=== PATIENT | male | born 1955 | race Caucasian/White ===

== ENCOUNTER → 2017-02-11 | Day surgery (SDC) | payer OTHER ==
[~2017-02-11] MED LIST: AMLO10 PO; APIX5TAB PO; ASPI81TA82 PO; ATOR80TA41 PO; CIAL2.5T PO; CLON1TAB PO; COZA50TA PO; FISH1000 PO; LABE100T2 PO; LACTATED RINGER'S 1000 ML INJ 1,000 ML ONE; NITR0.4S SL; PROPOFOL 1000 MG/100 ML BTL IV ONE; SOTA80TA PO
--- NOTE | 2017-02-11 12:21 | GIPROC ---
[facility] [address] [facility], [address] COLONOSCOPY PROCEDURE REPORT EXAM DATE: 02/11/2017 PATIENT NAME: Jovany Lema MR #: [id number] BIRTHDATE: 1955 ENDOSCOPIST: Bala Cordova MD ORDER #: [id number] ARCHIVIST POLITICAL HISTORY: Katty Simmons RN STATUS: outpatient INDICATIONS: The patient is a 61 yr old male here for a colonoscopy due to abdominal pain PROCEDURE PERFORMED: Colonoscopy, diagnostic MEDICATIONS: None and Per Anesthesia. PREP QUALITY: fair ESTIMATED BLOOD LOSS: None CONSENT: The patient understands the risks and benefits of the procedure and understands that these risks include, but are not limited to: sedation, allergic reaction, infection, perforation and/or bleeding. Alternative means of evaluation and treatment include, among others: physical exam, x-rays, and/or surgical intervention. The patient elects to proceed with this endoscopic procedure. medical equipment was checked for proper function. Hand hygiene and appropriate measures for infection prevention was taken. After the risks, benefits and alternatives of the procedure were thoroughly explained, Informed consent was verified, confirmed and timeout was successfully executed by the treatment team. A digital exam revealed no abnormalities of the rectum The EC-[id number] ([id number]) endoscope was introduced through the anus and advanced to the cecum, which was identified by both the appendix and ileocecal valve. The instrument was then slowly withdrawn as the colon was fully examined. COLON FINDINGS: Three sessile polyps were found in the distal transverse colon, descending colon, and sigmoid colon. Not removed due to anticoagulation. The colon mucosa was otherwise normal. Retroflexed views revealed no abnormalities The scope was then completely withdrawn from the patient and the procedure terminated. PROCEDURE WITHDRAWAL TIME:11.0minutes ADVERSE EVENTS: There were no complications. IMPRESSIONS: 1. Three sessile polyps were found in the distal transverse colon, descending colon, and sigmoid colon; not removed due to anticoagulation 2. The colon mucosa was otherwise normal 3. Retroflexed views revealed no abnormalities 4. Revealed no abnormalities of the rectum RECOMMENDATIONS: 1. Follow-up: GI Clinic 4 week(s) 2. Need to repeat colonoscopy without anticoagulation, need cardiac clearance RECALL: Bala Cordova MD eSigned: Bala Cordova MD 02/11/2017 12:20 PM cc: Godfrey Agustin M.D and ines gregory M.D. PATIENT NAME: Jovany Lema MR#: [id number]
--- NOTE | 2017-02-11 12:39 | GIPROC ---
[facility] [address] [facility] [place], [address] EGD PROCEDURE REPORT EXAM DATE: 02/11/2017 PATIENT NAME: Jovany Lema MR #: [id number] BIRTHDATE: 1955 ATTENDING: Bala Cordova MD ORDER #: [id number] CONTRACTS DIRECTOR: Katty Simmons RN STATUS: outpatient INDICATIONS: The patient is a 61 yr old male here for an EGD due to epigastric abdominal pain PROCEDURE PERFORMED: EGD w/ biopsy MEDICATIONS: None, Per Anesthesia, None, and Per Anesthesia. TOPICAL ANESTHETIC: CONSENT: The patient understands the risks and benefits of the procedure and understands that these risks include, but are not limited to: sedation, allergic reaction, infection, perforation and/or bleeding. Alternative means of evaluation and treatment include, among others: physical exam, x-rays, and/or surgical intervention. The patient elects to proceed with this endoscopic procedure. medical equipment was checked for proper function. Hand hygiene and appropriate measures for infection prevention was taken. After the risks, benefits and alternatives of the procedure were thoroughly explained, Informed consent was verified, confirmed and timeout was successfully executed by the treatment team. The patient was anesthetized with topical anesthesia and the EC-[id number] ([id number]) endoscope was introduced through the mouth and advanced to the second portion of the duodenum. Retroflexed views revealed no abnormalities The gastroscope was then slowly withdrawn and removed. ESOPHAGUS: The mucosa of the esophagus appeared normal. No biopsy due to anticoagulation. A mildly severe Schatzki ring was found at the gastroesophageal junction. The endoscopy was otherwise normal. STOMACH: A small hiatal hernia was noted. There was mild gastritis in the gastric antrum. 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 ADVERSE EVENTS: There were no complications. IMPRESSIONS: 1. The esophagus appeared normal 2. Schatzki ring was found at the gastroesophageal junction 3. Normal endoscopy otherwise 4. Small hiatal hernia 5. There was mild gastritis in the gastric antrum 6. 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 Retroflexed views revealed no abnormalities RECOMMENDATIONS: 1. Follow-up: GI clinic 4 week(s) 2. Need repeat EGD to biopsy to assess for hardy's PATIENT CONDITION: stable DISPOSITION: Home REPEAT EXAM: Bala Cordova MD eSigned: Bala Cordova MD 02/11/2017 12:39 PM cc: Godfrey Berg [facility] [place] PATIENT NAME: Jovany Lema MR#: [id number]
== END | disposition home or self-care (01) ==
LOC: ESDC 10:44
PROVIDERS: ATTEND Internal Medicine Gastroenterology
DX: R10.9 Unspecified abdominal pain (principal); D12.3 Benign neoplasm of transverse colon; D12.4 Benign neoplasm of descending colon; D12.5 Benign neoplasm of sigmoid colon; R10.13 Epigastric pain; K22.2 Esophageal obstruction; K44.9 Diaphragmatic hernia without obstruction or gangrene; K29.70 Gastritis, unspecified, without bleeding
CPT/HCPCS: 00740; 00810; 43239; 45378; J3010; J7120

== ENCOUNTER → 2017-06-03 | Day surgery (SDC) | payer OTHER ==
[~2017-06-03] MED LIST changes: -LACTATED RINGER'S 1000 ML INJ 1,000 ML ONE; -PROPOFOL 1000 MG/100 ML BTL IV ONE; +PROPOFOL 200 MG/20 ML AMP IV ONE
--- NOTE | 2017-06-03 14:22 | GIPROC ---
[facility] [address] [facility], [address] EGD PROCEDURE REPORT EXAM DATE: 06/03/2017 PATIENT NAME: Jovany Lema MR #: [id number] BIRTHDATE: 1955 ATTENDING: Bala Cordova MD ORDER #: [id number] ENGINE TESTING SUPERVISOR: Katty Simmons RN STATUS: outpatient INDICATIONS: The patient is a 61 yr old male here for an EGD due to history of esophageal reflux and follow up on submucosal mass PROCEDURE PERFORMED: EGD w/ biopsy MEDICATIONS: None, Per Anesthesia, None, and Per Anesthesia. TOPICAL ANESTHETIC: CONSENT: The patient understands the risks and benefits of the procedure and understands that these risks include, but are not limited to: sedation, allergic reaction, infection, perforation and/or bleeding. Alternative means of evaluation and treatment include, among others: physical exam, x-rays, and/or surgical intervention. The patient elects to proceed with this endoscopic procedure. medical equipment was checked for proper function. Hand hygiene and appropriate measures for infection prevention was taken. After the risks, benefits and alternatives of the procedure were thoroughly explained, Informed consent was verified, confirmed and timeout was successfully executed by the treatment team. The patient was anesthetized with topical anesthesia and the EG-[id number] ([id number]) endoscope was introduced through the mouth and advanced to the second portion of the duodenum. Retroflexed views revealed no abnormalities The gastroscope was then slowly withdrawn and removed. ESOPHAGUS: There was a short benign appearing, peptic and mild stricture in the distal esophagus. The stricture was easily traversable. The mucosa of the esophagus appeared normal. Multiple biopsies were performed. There was LA Class A esophagitis noted. The endoscopy was otherwise normal. STOMACH: There was mild erosive gastritis in the gastric antrum. Multiple biopsies were performed. DUODENUM: A smooth mass measuring 1.5 X 1.5cm in size was found in the 2nd part of the duodenum. Submucosal , probable lipoma. Multiple biopsies were performed. ADVERSE EVENTS: There were no complications. IMPRESSIONS: 1. There was a short stricture in the distal esophagus 2. The esophagus appeared normal; multiple biopsies were performed 3. There was LA Class A esophagitis noted 4. Normal endoscopy otherwise 5. There was mild gastritis in the gastric antrum; multiple biopsies were performed 6. Mass measuring 1.5 X 1.5cm in size was found in the 2nd part of the duodenum; submucosal , probable lipoma; multiple biopsies were performed 7. Retroflexed views revealed no abnormalities RECOMMENDATIONS: 1. Await biopsy results. Biopsy results will not be ready for 7-10 days. If you don't hear from us in two weeks, call our office for biopsy results. 2. Follow-up: GI clinic 3 week(s) 3. Anti-reflux regimen 4. Protonix 40mg Q AM PATIENT CONDITION: stable DISPOSITION: Home REPEAT EXAM: Bala Cordova MD eSigned: Bala Cordova MD 06/03/2017 2:21 PM cc: Godfrey Berg [facility] Alyssa PATIENT NAME: Jovany Lema MR#: [id number]
== END | disposition home or self-care (01) ==
LOC: ESDC 11:49
PROVIDERS: ATTEND Internal Medicine Gastroenterology
DX: K21.9 Gastro-esophageal reflux disease without esophagitis (principal); K22.2 Esophageal obstruction; K20.9 Esophagitis, unspecified; K29.70 Gastritis, unspecified, without bleeding; K31.89 Other diseases of stomach and duodenum
CPT/HCPCS: 00740; 43239; 88305; J3010